=== PATIENT | female | born 1985 | race Caucasian/White ===

== ENCOUNTER 2017-03-20 22:40 | Emergency (ER) | payer SELFPAY ==
[~2017-03-20] VITALS: Ht 175.3 cm; Wt 65.8 kg
[2017-03-20 22:50] VITALS: BP 135/59
== END 2017-03-20 23:56 ==
LOC: ER 22:50
DX: L25.9 Unspecified contact dermatitis, unspecified cause (principal); Z88.6 Allergy status to analgesic agent
CPT/HCPCS: 99282; A4606; Z7610